=== PATIENT | female | born 1955 | race Caucasian/White ===

== ENCOUNTER 2019-07-17 22:07 | Emergency (ER) | payer OTHER ==
[2019-07-17 22:58] LABS: Absolute Lymphocytes (CBC) 3.7 K/uL (0.7-4.9); Basophils % 1.2 % (0-1.3); Hematocrit 35.8 % (36.0-45.0); Lymphocytes % 43.9 % (15.3-44.8); RBC Red Blood Cell Count 3.91 M/uL (3.86-4.86)
[2019-07-17 23:16] LABS: BUN Blood Urea Nitrogen 23 mg/dL (7-18); Bicarbonate 28 mmol/L (21-32); Glucose Level 179 mg/dL (74-106); Magnesium 1.4 mg/dL (1.8-2.4); NT PRO-BNP 419 pg/mL (<125); Potassium 3.8 mmol/L (3.5-5.1); Sodium Level 138 mmol/L (136-145); Troponin (Emerg Dept Use Only) < 0.02 ng/mL (0.0-0.045)
[2019-07-17] MEDS ORDERED: Magnesium Sulfate 2gm IVPB 2 G/50 ML BAG IV ONE (23:34)
[2019-07-17] MEDS ORDERED: NA CHLORIDE 0.9% 500 ML ONE (23:34)
--- NOTE | 2019-07-18 00:55 | ER ---
Nurse's Notes [facility] Name: Marielle Flaherty Age: 63 yrs Sex: Female : 1955 Arrival Date: 07/17/2019 Time: 22:09 Bed 18 Private MD: Diagnosis: Ventricular premature depolarization;Dehydration;Hypomagnesemia Presentation: 07/17 22:11 Presenting complaint: Patient states: "I've been having a lot of fluttering in my chest aj1 and dizziness for the past 3 days. I had testing done a few months ago, an echo and I wore a halter monitor and all they found was PVCs." Denies pain. Reports shortness of breath as well. Transition of care: patient was not received from another setting of care. Onset of symptoms was 2018. Risk Assessment: Do you want to hurt yourself or someone else? Patient reports no desire to harm self or others. Initial Sepsis Screen: Does the patient meet any 2 criteria? HR > 90 bpm. No. Patient's initial sepsis screen is negative. Does the patient have a suspected source of infection?. Care prior to arrival: None. 22:11 Method Of Arrival: Ambulatory aj1 22:11 Acuity: ZEUS 3 aj1 Triage Assessment: 22:14 General: Appears in no apparent distress. comfortable, Behavior is calm, cooperative, aj1 appropriate for age. Pain: Denies pain. Neuro: Level of Consciousness is awake, alert, obeys commands. Cardiovascular: Patient's skin is warm and dry. Respiratory: Airway is patent Respiratory effort is even, unlabored, Respiratory pattern is regular, symmetrical. Historical: - Allergies: 22:14 NKA; aj1 - Home Meds: 22:14 metformin 850 mg Oral tab 1 tab 3 times per day [Active]; glimepiride 1 mg Oral tab aj1 twice a day [Active]; Toprol XL 50 mg Oral Tb24 1 tab once daily [Active]; - PMHx: 22:14 Diabetes - NIDDM; SVT; aj1 - Immunization history:: Flu vaccine is up to date. - Social history:: Smoking status: Patient/guardian denies using tobacco. - Ebola Screening: : Patient denies travel to an Ebola-affected area in the 21 days before illness onset. - Family history:: not pertinent. - Hospitalizations: : No recent hospitalization is reported. Screenin:30 Abuse screen: Denies threats or abuse. Denies injuries from another. Nutritional wh screening: No deficits noted. Tuberculosis screening: No symptoms or risk factors identified. Fall Risk None identified. Assessment: 22:30 General: Appears in no apparent distress. Behavior is calm, cooperative, appropriate wh for age. Pain: Denies pain. Neuro: Level of Consciousness is awake, alert, obeys commands. Neuro: Level of Consciousness is Oriented to person, place, time, situation, Appropriate for age. Cardiovascular: Heart tones S1 S2 Rhythm is regular. Cardiovascular: Reports chest flutters. Respiratory: Airway is patent Respiratory effort is even, unlabored, Respiratory pattern is regular, symmetrical, Breath sounds are clear bilaterally. GI: Abdomen is flat, non-distended. : No signs and/or symptoms were reported regarding the genitourinary system. EENT: No signs and/or symptoms were reported regarding the EENT system. Derm: Skin is intact, is healthy with good turgor, Skin is pink, warm \\T\\ dry. normal. Musculoskeletal: Circulation, motion, and sensation intact. 23:16 Reassessment: Dr. Heredia notified of critical lab Mg 1.4. ss 23:30 Reassessment: Patient appears in no apparent distress at this time. No changes from previously documented assessment. Patient and/or family updated on plan of care and expected duration. Pain level reassessed. Patient is alert, oriented x 3, equal unlabored respirations, skin warm/dry/pink. Patient denies pain at this time. 07/18 00:24 Reassessment: Patient appears in no apparent distress at this time. No changes from previously documented assessment. Patient and/or family updated on plan of care and expected duration. Pain level reassessed. Patient is alert, oriented x 3, equal unlabored respirations, skin warm/dry/pink. 01:10 Reassessment: Patient appears in no apparent distress at this time. No changes from previously documented assessment. Patient and/or family updated on plan of care and expected duration. Pain level reassessed. Patient is alert, oriented x 3, equal unlabored respirations, skin warm/dry/pink. Patient denies pain at this time. Vital Signs: 07/17 22:14 BP 152 / 82; Pulse 88; Resp 16; Temp 97.9; Pulse Ox 96% on R/A; Weight 99.79 kg (R); aj1 Height 5 ft. 8 in. (172.72 cm) (R); Pain 0/10; 23:15 BP 126 / 61; Pulse 82; Resp 18; Pulse Ox 97% on R/A; 07/18 00:15 BP 128 / 60; Pulse 78; Resp 18; Pulse Ox 94% on R/A; 01:00 BP 130 / 65; Pulse 72; Resp 18; Pulse Ox 97% on R/A; 07/17 22:14 Body Mass Index 33.45 (99.79 kg, 172.72 cm) [facility] ED Course: 07/17 22:09 Patient arrived in ED. ds1 22:13 Triage completed. aj1 22:14 Arm band placed on Patient placed in an exam room. aj1 22:23 Liam Heredia MD is Attending Physician. rn 22:30 Patient has correct armband on for positive identification. Placed in gown. Bed in low wh position. Call light in reach. Side rails up X 1. teletypesetter monitor on. Pulse ox on. NIBP on. 22:44 Igor Beard is Primary Nurse. 22:45 Inserted saline lock: 22 gauge in right antecubital area, using aseptic technique. Blood collected. 22:50 XRAY Chest (1 view) In Process Unspecified. EDVA 07/18 01:11 No provider procedures requiring assistance completed. IV discontinued, intact, bleeding controlled, No redness/swelling at site. Administered Medications: 07/17 23:39 Drug: NS 0.9% 500 ml Route: IV; Rate: bolus; Site: right antecubital; 07/18 01:11 Follow up: Response: No adverse reaction; IV Status: Completed infusion 07/17 23:40 Drug: Magnesium Sulfate 2 grams Route: IVPB; Infused Over: 2 hrs; Site: right antecubital; 07/18 01:11 Follow up: Response: No adverse reaction; IV Status: Completed infusion Outcome: 00:53 Discharge ordered by . rn 01:11 Discharged to home ambulatory, with family. 01:11 Condition: stable 01:11 Discharge instructions given to patient, family, Instructed on discharge instructions, follow up and referral plans. POC Hypomagnesemia and PVC Demonstrated understanding of instructions, follow-up care, POC 01:12 Patient left the ED. Signatures: Dispatcher [employer] Ximena Callaway RN RN aj1 Sanford, Demi ds1 Liam Hreedia MD MD rn Smirch, Shelby, RN RN ss Habalo, Winsy
--- NOTE | 2019-07-18 00:55 | EDPHYS ---
Physician Documentation [facility] Name: Marielle Flaherty Age: 63 yrs Sex: Female : 1955 Arrival Date: 07/17/2019 Time: 22:09 Bed 18 Private MD: ED Physician Liam Heredia HPI: 07/17 22:46 This 63 yrs old Female presents to ER via Ambulatory with complaints of Chest rn Flutters, Dizziness. 22:46 The patient presents with a history of heart skipping beats. Context: The symptoms rn occur at rest. Onset: The symptoms/episode began/occurred 3 day(s) ago. Duration: The patient or guardian reports multiple episodes, that are intermittent. Modifying factors: The symptoms are aggravated by nothing. The symptoms are alleviated by nothing. Associated signs and symptoms: Pertinent negatives: chest pain, cough, fever, SOB, syncope, vertigo, vomiting. Severity of symptoms: At their worst the symptoms were mild in the emergency department the symptoms have improved. The patient has experienced similar episodes in the past. The patient has not recently seen a physician. Reports several months of palpitations, reports feels skips intermittently, assoc with lightheadedness when standing and changing position. No fever/cough/chest pain/abd pain/vomiting/diarrhea. No change in medication. Had complete cardiac w/u 6 months ago and told only pvcs, followed by Dr. Toribio. Has always had problems with low magnesium. . Historical: - Allergies: 22:14 NKA; aj1 - Home Meds: 22:14 metformin 850 mg Oral tab 1 tab 3 times per day [Active]; glimepiride 1 mg Oral tab aj1 twice a day [Active]; Toprol XL 50 mg Oral Tb24 1 tab once daily [Active]; - PMHx: 22:14 Diabetes - NIDDM; SVT; aj1 - Immunization history:: Flu vaccine is up to date. - Social history:: Smoking status: Patient/guardian denies using tobacco. - Ebola Screening: : Patient denies travel to an Ebola-affected area in the 21 days before illness onset. - Family history:: not pertinent. - Hospitalizations: : No recent hospitalization is reported. ROS: 22:46 Constitutional: Negative for fever, chills, and weight loss, Neck: Negative for injury, rn pain, and swelling, Cardiovascular: Negative for chest pain, and edema, Respiratory: Negative for shortness of breath, cough, wheezing, and pleuritic chest pain, Abdomen/GI: Negative for abdominal pain, nausea, vomiting, diarrhea, and constipation, MS/Extremity: Negative for injury and deformity, Skin: Negative for injury, rash, and discoloration, Neuro: Negative for headache, weakness, numbness, tingling, and seizure. Exam: 22:46 Constitutional: This is a well developed, well nourished patient who is awake, alert, rn and in no acute distress. Head/Face: Normocephalic, atraumatic. ENT: MMM Cardiovascular: Regular rhythm with occasional PVC Respiratory: Lungs have equal breath sounds bilaterally, clear to auscultation. No increased work of breathing, no retractions or nasal flaring. Abdomen/GI: soft, non-tender MS/ Extremity: Pulses equal, no cyanosis. Neurovascular intact. Full, normal range of motion. Equal circumference. Neuro: Awake and alert, GCS 15. Motor strength 5/5 in all extremities. Sensory grossly intact. Vital Signs: 22:14 BP 152 / 82; Pulse 88; Resp 16; Temp 97.9; Pulse Ox 96% on R/A; Weight 99.79 kg (R); aj1 Height 5 ft. 8 in. (172.72 cm) (R); Pain 0/10; 23:15 BP 126 / 61; Pulse 82; Resp 18; Pulse Ox 97% on R/A; wh 07/18 00:15 BP 128 / 60; Pulse 78; Resp 18; Pulse Ox 94% on R/A; wh 01:00 BP 130 / 65; Pulse 72; Resp 18; Pulse Ox 97% on R/A; wh 07/17 22:14 Body Mass Index 33.45 (99.79 kg, 172.72 cm) aj1 MDM: 07/17 22:23 Patient medically screened. rn 07/18 00:51 Differential diagnosis: arrythmia, dehydration, stress disorder, electrolyte disorder. rn Data reviewed: vital signs, nurses notes, lab test result(s), EKG, radiologic studies, plain films, and as a result, I will discharge patient. Test interpretation: by ED physician or midlevel provider: ECG, plain radiologic studies, CXR neg for acute infiltrate. Counseling: I had a detailed discussion with the patient and/or guardian regarding: the historical points, exam findings, and any diagnostic results supporting the discharge/admit diagnosis, lab results, radiology results, the need for outpatient follow up, to return to the emergency department if symptoms worsen or persist or if there are any questions or concerns that arise at home. Response to treatment: the patient's symptoms have mildly improved after treatment, and as a result, I will discharge patient. Special discussion: I discussed with the patient/guardian in detail that at this point there is no indication for admission to the hospital. It is understood, however, that if the symptoms persist or worsen the patient needs to return immediately for re-evaluation. Based on the history and exam findings, there is no indication for further emergent testing or inpatient evaluation. I discussed with the patient/guardian the need to see the angiography technologist for further evaluation of the symptoms. I discussed with the patient/guardian the need to see the primary care provider for further evaluation of the symptoms. 07/17 22:37 Order name: Basic Metabolic Panel 07/17 22:37 Order name: CBC with Diff; Complete Time: 23:18 rn 07/17 22:37 Order name: Magnesium; Complete Time: 23:18 rn 07/17 22:37 Order name: NT PRO-BNP; Complete Time: 23:18 rn 07/17 22:37 Order name: Troponin (emerg Dept Use Only); Complete Time: 23:18 rn 07/17 22:38 Order name: Basic Metabolic Panel; Complete Time: 23:18 EDMS 07/17 22:37 Order name: XRAY Chest (1 view) 07/17 22:37 Order name: Cardiac monitoring; Complete Time: 22:46 rn 07/17 22:37 Order name: EKG - Nurse/Tech; Complete Time: 22:46 rn 07/17 22:37 Order name: IV Saline Lock; Complete Time: 22:46 rn 07/17 22:37 Order name: Labs collected and sent; Complete Time: 22:46 rn 07/17 22:37 Order name: O2 Per Protocol; Complete Time: 22:46 rn 07/17 22:37 Order name: O2 Sat Monitoring; Complete Time: 22:46 rn Administered Medications: 07/17 23:39 Drug: NS 0.9% 500 ml Route: IV; Rate: bolus; Site: right antecubital; wh 07/18 01:11 Follow up: Response: No adverse reaction; IV Status: Completed infusion 07/17 23:40 Drug: Magnesium Sulfate 2 grams Route: IVPB; Infused Over: 2 hrs; Site: right antecubital; 07/18 01:11 Follow up: Response: No adverse reaction; IV Status: Completed infusion Disposition: 07/18/19 00:53 Discharged to Home. Impression: Ventricular premature depolarization, Dehydration, Hypomagnesemia. - Condition is Stable. - Discharge Instructions: Dehydration, Adult, Hypomagnesemia, Premature Ventricular Contraction. - Medication Reconciliation Form, Thank You Letter, Antibiotic Education, Prescription Opioid Use form. - Follow up: Private Physician; When: As needed; Reason: Recheck today's complaints, Re-evaluation by your physician. - Problem is an ongoing problem. - Symptoms have improved. Signatures: Dispatcher [employer] EDXimena Cardenas RN RN aj1 Liam Heredia MD MD rn Habalo, Winsy Corrections: (The following items were deleted from the chart) 01:12 00:53 07/18/2019 00:53 Discharged to Home. Impression: Ventricular premature wh depolarization; Dehydration; Hypomagnesemia. Condition is Stable. Forms are Medication Reconciliation Form, Thank You Letter, Antibiotic Education, Prescription Opioid Use. Follow up: Private Physician; When: As needed; Reason: Recheck today's complaints, Re-evaluation by your physician. Problem is an ongoing problem. Symptoms have improved. rn
[2019-07-18 02:13] VITALS: TEMP 97.9
[2019-07-18 02:16] VITALS: BP 130/65; O2SAT 97
--- NOTE | 2019-07-18 07:05 | EKG ---
Test Date: 2019-07-17 Test Time: 22:28:35 Services Mgr: JIMENEZ MEASUREMENT RESULTS: Intervals: Rate: 84 IL: 162 QRSD: 84 QT: 380 QTc: 449 [place]: P: 65 IL: 162 QRS: 63 T: 85 INTERPRETIVE STATEMENTS: Sinus rhythm with occasional premature ventricular complexes Otherwise normal ECG Compared to ECG 02/17/2017 23:42:28 Ventricular premature complex(es) now present Electronically Signed On 07-18-19 07:04:18 REMEDIAL PROJECT MANAGER by Lon Lucero
--- NOTE | 2019-07-18 09:25 | RAD REPORT ---
EXAM DESCRIPTION: RAD - Chest Single View - 07/17/2019 10:49 pm CLINICAL HISTORY: Shortness of breath COMPARISON: January 2017 TECHNIQUE: AP portable chest image was obtained 2244 hours . FINDINGS: Lungs are clear. Heart and vasculature are normal. No measurable pleural effusion and no p neumothorax. No acute bony abnormality seen. No acute aortic findings suspected. IMPRESSION: No acute cardiopulmonary process. No significant interval change.
== END 2019-07-18 01:12 | disposition home or self-care (01) ==
LOC: ER 22:07
DX: E86.0 Dehydration (principal); E83.42 Hypomagnesemia; E11.9 Type 2 diabetes mellitus without complications
CPT/HCPCS: 96365; 93005; 85025; 80048; 36415; 83735; 84484; 83880; 71045; 99284; 96366; J3475; J7040

== ENCOUNTER 2019-09-13 07:38 | Day surgery (SDC) | payer OTHER ==
[2019-09-12 10:13] LABS: Absolute Lymphocytes (CBC) 2.1 K/uL (0.7-4.9); Hematocrit 35.5 % (36.0-45.0); Lymphocytes % 37.1 % (15.3-44.8); MPV 9.8 fL (7.6-11.3); RBC Red Blood Cell Count 3.86 M/uL (3.86-4.86)
--- NOTE | 2019-09-12 10:20 | EKG ---
Test Date: 2019-09-12 Test Time: 09:42:19 Chemical Sales Representative: MIGUELITO MEASUREMENT RESULTS: Intervals: Rate: 63 GA: 166 QRSD: 88 QT: 422 QTc: 431 [place]: P: 37 GA: 166 QRS: 24 T: 86 INTERPRETIVE STATEMENTS: Normal sinus rhythm Normal ECG Compared to ECG 07/17/2019 22:28:35 Ventricular premature complex(es) no longer present Electronically Signed On 09-12-19 10:19:51 GLUE BONE DRIER by Lon Lucero
[2019-09-12 10:23] LABS: Protime INR 0.89
[2019-09-12 10:30] LABS: Potassium 4.1 mmol/L (3.5-5.1)
--- NOTE | 2019-09-12 10:57 | RAD REPORT ---
EXAM DESCRIPTION: Mikhail Salazar (2 Views)09/12/2019 10:28 am CLINICAL HISTORY: Preop for cardiac catheterization COMPARISON: July 2019 FINDINGS: The lungs appear clear of acute infiltrate. The heart is normal size IMPRESSION: No acute abnormalities displayed
[2019-09-13] MEDS ORDERED: NA CHLORIDE 0.9% 500 ML ONE (07:55)
[2019-09-13] MEDS ORDERED: NA CHLORIDE 0.9% 0 ML ONE (08:58)
[2019-09-13] MEDS ORDERED: HEPA 1000U/500MLS 1,000 UNIT/500 ML BAG IV ONE (08:58)
[2019-09-13] MEDS ORDERED: ATROPINE SULF 1 MG/10 ML SYR IV ONE (08:58)
[2019-09-13] MEDS ORDERED: FENTANYL CITR 100 MCG/2 ML ONE (08:58)
[2019-09-13] MEDS ORDERED: MIDAZOLAM HCL 2 MG/2 ML INJ ONE (08:58)
[2019-09-13 11:41] VITALS: BP 129/48; TEMP 97.2; O2SAT 96
--- NOTE | 2019-09-13 19:41 | OP ---
Date of Procedure: 09/13/2019 Surgeon: Josias Toribio MD Welding Technician: Minh Lindquist. Procedure: Heart catheterization, selective coronary arteriogram. Indication: Unstable angina. Description Of Procedure: Patient was prepped and draped in routine sterile fashion. 6-Sinhala sheat h introduced in the right common femoral artery. She was sedated with Versed and fentanyl. Angiogra phy in the right groin was normal. Angio-Seal was used to close the case. A 6-Sinhala Mino cathet er left and right were used to select the left main and the right main respectively. She had perfect ly normal coronaries. Complications: There were no complications. Blood Loss: 5 mL. Postoperative Diagnosis: Chest pain with normal coronaries. Plan: Plan is for medical therapy. Anesthesia: Total conscious sedation was 30 minutes. I would like to note that while she was on telemetry, she had multiple episodes of short runs of atri al fibrillation certainly could be that this was causing her symptoms. Nevertheless, she will go chrissie e today in 2 hours after bedrest and follow up with me in the office in 2 weeks. We will may have to do an event monitor to see if we can document atrial fibrillation better. EFREN/ALBERTO Voice ID: [id number] Report ID: [id number]
== END 2019-09-13 11:35 | disposition home health service (06) ==
LOC: CCL 07:38
PROC: B201YZZ Plain Radiography of Multiple Coronary Arteries using Other Contrast (ICD-10-PCS; principal; 2019-09-13)
DX: I20.0 Unstable angina (principal); I10 Essential (primary) hypertension; E78.5 Hyperlipidemia, unspecified; E11.9 Type 2 diabetes mellitus without complications; I48.91 Unspecified atrial fibrillation
CPT/HCPCS: 93005; 85025; 80048; 36415; 85610; 82947; 85730; 71046; 93454; C1893; C1760; J2250; J3010; J7040; J0583

== ENCOUNTER 2019-11-18 17:04 | Emergency (ER) | payer OTHER ==
[2019-11-18] MEDS ORDERED: ACETAMINOPHEN 500 MG TAB ONE (18:15)
--- NOTE | 2019-11-18 20:35 | ER ---
Nurse's Notes [facility] Name: Marielle Flaherty Age: 64 yrs Sex: Female : 1955 Arrival Date: 11/18/2019 Time: 17:07 Bed 13 Private MD: Diagnosis: Viral infection of unspecified site Presentation: 11/17 17:39 Chief complaint: Patient states: Sneezing and cough that began yesterday, sore throat ph and fever that began today, TMAX 101.5. Coronavirus screen: The patient has NOT traveled to a country currently being monitored by the [facility] within the last 14 days. The patient has NOT had contact with any known and/or suspected case of coronavirus. Ebola Screen: No symptoms or risks identified at this time. Initial Sepsis Screen: Does the patient meet any 2 criteria? No. Patient's initial sepsis screen is negative. Does the patient have a suspected source of infection? No. Patient's initial sepsis screen is negative. Risk Assessment: Do you want to hurt yourself or someone else? Patient reports no desire to harm self or others. 17:39 Method Of Arrival: Ambulatory ph 17:39 Acuity: ZEUS 4 ph Triage Assessment: 17:40 General: Appears in no apparent distress. comfortable, Behavior is calm, cooperative, bp appropriate for age. Pain: Denies pain. EENT: No deficits noted. Neuro: No deficits noted. Cardiovascular: No deficits noted. Respiratory: Reports cough that is. GI: No signs and/or symptoms were reported involving the gastrointestinal system. : No signs and/or symptoms were reported regarding the genitourinary system. Derm: No deficits noted. Musculoskeletal: No deficits noted. Historical: - Allergies: 17:41 NKA; ph - Home Meds: 17:41 glimepiride 1 mg Oral tab twice a day [Active]; metformin 850 mg Oral tab 1 tab 3 times ph per day [Active]; Toprol XL 50 mg Oral Tb24 1 tab once daily [Active]; - PMHx: 17:41 Diabetes - NIDDM; SVT; ph - Immunization history:: Adult Immunizations unknown. - Social history:: Smoking status: Patient denies any tobacco usage or history of. Screenin:40 Abuse screen: Denies threats or abuse. Denies injuries from another. Nutritional bp screening: No deficits noted. Tuberculosis screening: No symptoms or risk factors identified. Fall Risk None identified. Assessment: 17:40 General: SEE TRIAGE NOTE. PT PLACED ON DROPLET PRECAUTION. bp 18:23 Reassessment: PT ON DROPLET PRECAUTIONS. ALL CURRENT ORDERS COMPLETED, RESULTS PENDING. bp 20:13 Reassessment: No changes from previously documented assessment. Patient and/or family bb3 updated on plan of care and expected duration. Pain level reassessed. Patient is alert, oriented x 3, equal unlabored respirations, skin warm/dry/pink. Patient denies pain at this time. General: Appears in no apparent distress. comfortable. Pain: Denies pain. Neuro: No deficits noted. Respiratory: Reports cough that is non-productive, dry. Derm: No deficits noted. Musculoskeletal: No deficits noted. 21:09 Reassessment: Patient appears in no apparent distress at this time. No changes from bb3 previously documented assessment. Patient and/or family updated on plan of care and expected duration. Pain level reassessed. Patient is alert, oriented x 3, equal unlabored respirations, skin warm/dry/pink. Patient denies pain at this time. General: Appears in no apparent distress. comfortable. Pain: Denies pain. Neuro: No deficits noted. Respiratory: No deficits noted. Vital Signs: 17:39 BP 124 / 72; Pulse 89; Resp 18; Temp 101.5; Pulse Ox 98% on R/A; ph 18:23 BP 101 / 44; Pulse 81; Resp 19; Pulse Ox 96% ; bp 19:50 BP 116 / 98; Pulse 79; Resp 18; Pulse Ox 97% ; Pain 0/10; bb3 21:06 BP 125 / 79; Pulse 78; Resp 19; Pain 0/10; bb3 ED Course: 17:07 Patient arrived in ED. ag5 17:21 Hesham Dhaliwal PA is PHCP. jmm 17:21 Jose Antonio Thorne MD is Attending Physician. jm 17:21 Juan Gallego PA is PHCP. jr8 17:21 Jose Antonio Thorne MD is Attending Physician. jr8 17:22 Espinoza Mcdermott, RN is Primary Nurse. bp 17:40 Triage completed. ph 17:40 Patient has correct armband on for positive identification. Bed in low position. Call bp light in reach. Side rails up X2. 17:42 Arm band placed on Patient placed in an exam room, on a stretcher. ph 18:15 Flu and/or RSV swab sent to lab. Strep swab sent to lab. bp 18:36 XRAY Chest (1 view) In Process Unspecified. EDMS Administered Medications: 18:15 Drug: Tylenol 1000 mg Route: PO; bp Outcome: 20:35 Discharge ordered by MD. marx 21:11 Patient left the ED. bb3 Addendum: 11/20/2019 16:12 Addendum: Other Patient notified of negative COVID-19 swab results. Pt advised to d m5 continue to monitor symptoms and to return if they worsened. Signatures: Dispatcher [employer] EDMS Sheree Wall, RN RN dm5 Hesham Dhaliwal PA PA jmm Roszak, Josh, PA PA jr8 Mis Arevalo RN RN Espinoza Ruiz RN RN Gianluca Cope ag5 Nurys Lainez bb3 Corrections: (The following items were deleted from the chart) 11/17 18:24 17:40 General: SEE TRIAGE NOTE. bp bp
--- NOTE | 2019-11-18 20:35 | EDPHYS ---
Physician Documentation [facility] Name: Marielle Flaherty Age: 64 yrs Sex: Female : 1955 Arrival Date: 11/18/2019 Time: 17:07 Bed 13 Private MD: ED Physician Jose Antonio Thorne HPI: 11/17 18:28 This 64 yrs old Female presents to ER via Ambulatory with complaints of jr8 Cough, Fever. 18:28 The patient or guardian reports cough, that is intermittent, described as mild, with no jr8 sputum. Onset: The symptoms/episode began/occurred acutely, today. Severity of symptoms: At their worst the symptoms were mild, in the emergency department the symptoms are unchanged. Modifying factors: The symptoms are alleviated by nothing, the symptoms are aggravated by nothing. Associated signs and symptoms: Pertinent positives: fever, rhinorrhea, sore throat. The patient has not experienced similar symptoms in the past. The patient has not recently seen a physician. Historical: - Allergies: 17:41 NKA; ph - Home Meds: 17:41 glimepiride 1 mg Oral tab twice a day [Active]; metformin 850 mg Oral tab 1 tab 3 times ph per day [Active]; Toprol XL 50 mg Oral Tb24 1 tab once daily [Active]; - PMHx: 17:41 Diabetes - NIDDM; SVT; ph - Immunization history:: Adult Immunizations unknown. - Social history:: Smoking status: Patient denies any tobacco usage or history of. ROS: 18:28 Eyes: Negative for injury, pain, redness, and discharge, Neck: Negative for injury, jr8 pain, and swelling, Cardiovascular: Negative for chest pain, palpitations, and edema, Abdomen/GI: Negative for abdominal pain, nausea, vomiting, diarrhea, and constipation, Back: Negative for injury and pain, MS/Extremity: Negative for injury and deformity, Skin: Negative for injury, rash, and discoloration, Neuro: Negative for headache, weakness, numbness, tingling, and seizure. 18:28 Constitutional: Positive for body aches, chills, fever. 18:28 ENT: Positive for rhinorrhea, sinus congestion, sore throat. 18:28 Respiratory: Positive for cough, Negative for shortness of breath, sputum production, wheezing. Exam: 18:28 Eyes: Pupils equal round and reactive to light, extra-ocular motions intact. Lids and jr8 lashes normal. Conjunctiva and sclera are non-icteric and not injected. Cornea within normal limits. Periorbital areas with no swelling, redness, or edema. ENT: Nares patent. No nasal discharge, no septal abnormalities noted. Tympanic membranes are normal and external auditory canals are clear. Oropharynx with no redness, swelling, or masses, exudates, or evidence of obstruction, uvula midline. Mucous membranes moist. Neck: Trachea midline, no thyromegaly or masses palpated, and no cervical lymphadenopathy. Supple, full range of motion without nuchal rigidity, or vertebral point tenderness. No Meningismus. Cardiovascular: Regular rate and rhythm with a normal S1 and S2. No gallops, murmurs, or rubs. Normal PMI, no JVD. No pulse deficits. Respiratory: Lungs have equal breath sounds bilaterally, clear to auscultation and percussion. No rales, rhonchi or wheezes noted. No increased work of breathing, no retractions or nasal flaring. Abdomen/GI: Soft, non-tender, with normal bowel sounds. No distension or tympany. No guarding or rebound. No evidence of tenderness throughout. Back: No spinal tenderness. No costovertebral tenderness. Full range of motion. Skin: Warm, dry with normal turgor. Normal color with no rashes, no lesions, and no evidence of cellulitis. MS/ Extremity: Pulses equal, no cyanosis. Neurovascular intact. Full, normal range of motion. Neuro: Awake and alert, GCS 15, oriented to person, place, time, and situation. Cranial nerves II-XII grossly intact. Motor strength 5/5 in all extremities. Sensory grossly intact. Cerebellar exam normal. Normal gait. Vital Signs: 17:39 BP 124 / 72; Pulse 89; Resp 18; Temp 101.5; Pulse Ox 98% on R/A; ph 18:23 BP 101 / 44; Pulse 81; Resp 19; Pulse Ox 96% ; bp 19:50 BP 116 / 98; Pulse 79; Resp 18; Pulse Ox 97% ; Pain 0/10; bb3 21:06 BP 125 / 79; Pulse 78; Resp 19; Pain 0/10; bb3 MDM: 17:21 Patient medically screened. jr8 20:33 Data reviewed: vital signs, nurses notes, lab test result(s), radiologic studies, plain jr8 films. Data interpreted: Pulse oximetry: on room air is 97 %. Interpretation: normal. Counseling: I had a detailed discussion with the patient and/or guardian regarding: the historical points, exam findings, and any diagnostic results supporting the discharge/admit diagnosis, lab results, radiology results, the need for outpatient follow up, a family practitioner, to return to the emergency department if symptoms worsen or persist or if there are any questions or concerns that arise at home. 11/17 18:04 Order name: Strep; Complete Time: 19:04 jr8 11/17 18:04 Order name: Influenza Screen (a \T\ B); Complete Time: 19: jr8 11/17 18:04 Order name: XRAY Chest (1 view); Complete Time: 21:04 jr8 11/17 19:02 Order name: Throat Culture [facility] 11/17 19:54 Order name: Misc. Lab Test [facility] Administered Medications: 18:15 Drug: Tylenol 1000 mg Route: PO; bp Disposition: 11/18/19 20:35 Discharged to Home. Impression: Viral infection of unspecified site. - Condition is Stable. - Discharge Instructions: Viral Respiratory Infection. - Work release form, Medication Reconciliation Form, Thank You Letter, Antibiotic Education, Prescription Opioid Use form. - Follow up: Private Physician; When: 10 - 14 days; Reason: Recheck today's complaints, Continuance of care, Re-evaluation by your physician. - Problem is new. - Symptoms have improved. Addendum: 12/01/2019 21:21 Co-signature as Attending Physician, Jose Antonio Thorne MD available for consultation at p s1 all times. . Signatures: Dispatcher [employer] EDTX Juan Gallego PA PA jr8 Mis Arevalo RN RN Espinoza Ruiz RN RN Jose Antonio Gallegos MD MD [facility] Nurys Lainez3 Corrections: (The following items were deleted from the chart) 11/17 21:11 20:35 11/18/2019 20:35 Discharged to Home. Impression: Viral infection of unspecified bb3 site. Condition is Stable. Forms are Medication Reconciliation Form, Thank You Letter, Antibiotic Education, Prescription Opioid Use. Follow up: Private Physician; When: 10 - 14 days; Reason: Recheck today's complaints, Continuance of care, Re-evaluation by your physician. Problem is new. Symptoms have improved. jr8
--- NOTE | 2019-11-18 20:55 | RAD REPORT ---
EXAM DESCRIPTION: RAD - Chest Single View - 11/18/2019 6:35 pm CLINICAL HISTORY: COUGH COMPARISON: September 12 TECHNIQUE: AP portable chest image was obtained 11/18/2019 6:35 pm . FINDINGS: Lungs are clear. Heart and vasculature are normal. No measurable pleural effusion and no p neumothorax. No acute bony abnormality seen. No acute aortic findings suspected. IMPRESSION: No acute cardiopulmonary process. No significant interval change.
== END 2019-11-18 21:11 | disposition home or self-care (01) ==
LOC: ER 17:04
DX: B34.9 Viral infection, unspecified (principal); E11.9 Type 2 diabetes mellitus without complications; Z20.828 Contact with and (suspected) exposure to other viral communicable diseases
CPT/HCPCS: 87070; 87081; 87804 ×2; 71045; 99283; U0001

== ENCOUNTER 2021-05-01 16:01 | Inpatient (IN) | payer OTHER ==
--- OUTSIDE RECORDS SUMMARY | 2021-05-01 16:07 | XMS REPORT | Continuity of Care Document ---
:1955 Author Organization [facility] Address [address] [place] [address] [address] [place] [address] Care Team Providers Name Role Phone Pcp, Does Not Have A Primary Care Physician Cade RN Attending Clinician Unavailable Only, Db Test Attending Clinician Unavailable Lico RUVALCABA Attending Clinician Malu HERNANDEZ FLuis Attending Clinician Payers Payer Name Policy Type Policy Effective Date Expiration Source Number Date MEDICAREMEDICARE PART [id number] 2018 [employer] [facility] & 00:00:00 [place] [facility] FzdqkpriKY600/08/2018- [facility] [id number] [place] [id number] [facility] AND [id number] 2019 [facility] LIFECONTINENTNC 00:00:00 [place] [facility] ical [id number]/ [facility] -PresentIndemnit y Problems This patient has no known problems. Allergies, Adverse Reactions, Alerts This patient has no known allergies or adverse reactions. Social History Social Habit Start Date Stop Date Quantity Comments Source Exposure to Not sure [facility] SARS-CoV-2 (event) Medica [facility] Branch Sex Assigned At [birth year] [facility] 00:00:00 00:00:00 Smoking Status Start Date Stop Date Source Unknown if ever smoked [facility] Medications This patient has no known medications. Procedures Procedure Date / Time Performed Performing Clinician Sourc e NM BRAIN SPECT W I 123 2020-10-03 22:39:58 Oj Toribio [facility] DATSCCRESENCIO Plan of Care Planned Activity Planned Date Details Comments Source Future Scheduled Test COVID-19 VACCINE (1) [facility] [code = COVID-19 VACCINE (1)] Future Scheduled Test Hepatitis C screening [facility] (procedure) [code = 074438429] Future Scheduled Test BREAST CANCER SCREENING [facility] [code = BREAST CANCER SCREENING] Future Scheduled Test COLONOSCOPY SCREENING [facility] [code = COLONOSCOPY SCREENING] Future Scheduled Test SHINGLES VACCINES (#1) [facility] [code = SHINGLES VACCINES (#1)] Future Scheduled Test 65+ PNEUMOCOCCAL [facility] VACCINE (1 of 1 - PPSV23) [code = 65+ PNEUMOCOCCAL VACCINE (1 of 1 - PPSV23)] Future Scheduled Test INFLUENZA VACCINE [code [facility] = INFLUENZA VACCINE] Encounters Start End Encounter Admission Attending Care Care Encounter Source Date/Time Date/Time Type Type Clinicians Facility Department ID 2021-04-29 2021-04-29 Telephone JACK Mohamud [id number] [facility] 00:00:00 00:00:00 [place] [id number] ity of [facility] 4.2.7.2.686 Baron as [phone] [address] 2021-04-27 2021-04-27 Laboratory Only, Ang Db Test [facility] 1.2.8 40.114 [id number] [facility] 18:38:22 18:48:22 [facility] [id number] ity [facility] 4.2.7.2.686 Baron as Ezequiel?Blea [phone] [place] [address] [facility] 2020-10-03 2020-10-03 [facility], 1.2.840.1 [id number] Methodi 09:30:34 23:59:00 Encounter Oj Batista 48832.1.[address] 3.430.2.7 Hospit a .3.613673 l .8 2020-10-03 2020-10-03 [facility] 1.2.840.1 [id number] Methodi 09:30:00 09:30:00 Encounter Oj Batista 05019.1.[address] 3.430.2.7 Hospit a .3.842690 l .8 2020-10-03 2020-10-03 Travel 1.2.840.1 [id number] Methodi 00:00:00 00:00:[address] 3.430.2.7 0.2.7.3.698 Ho spita .3.870724 084.8 l .8 2020-10-03 2020-10-03 [facility] [id number] [place] 00:00:00 00:00:[address] O[address] 2020-10-03 2020-10-03 [facility] [id number] [place] 00:00:00 00:00:[address] O[address] 2020-09-17 2020-09-17 Travel 1.2.840.1 [id number] [id number] Methodi 00:00:00 00:00:[address] 3.430.2.7 0.2.7.3.698 Ho spita .3.893646 084.8 l .8 2020-08-21 2020-08-21 Travel 1.2.840.1 1.2.644.428 [id number] Methodi 00:00:00 00:00:[address] 3.430.2.7 0.2.7.3.698 Ho spita .3.428059 084.8 l .8 2020-08-21 2020-08-21 Transcribe [place], 1.2.840.1 [id number] Methodi 00:00:00 00:00:[address] Renae Batista [address] 3.430.2.7 Hospit a .3.385812 l .8 Results Test Description Test Time Test Comments Results Result [facility] e Comments NM Brain Spect W Procedure: MT BRAIN [employer] I 123 Datscan 4 SPECT W I 123 DATSCAN [facility] 00:35:10 Clinical History: R25.1 Tremor unspecified, R25.1 Comparison: No relevant imaging available for comparison. Technique: The patient was given 3 drops of Lugol's solution orally to protect the thyroid. The patient was then injected with 5 mCi of C-476-OeJdhqn intravenously. SPECT imaging of the brain was performed approximately 4 hours later. Findings: Normal uptake bilaterally in the caudate and putamen. Impression:Normal DaTscan. No evidence of a neurodegenerative parkinsonian syndrome. [facility]-[id number] [facility], Radiology Results - 10/03/2020 6:38 PM CST Procedure: MT BRAIN SPECT W I 123 DATSCANClinical History: R25.1 Tremor unspecified, R25.1 Comparison: No relevant imaging available for comparison.Technique: The patient was given 3 drops of Lugol's solution orally to protect the thyroid. The patient was then injected with 5 mCi of T-396-BiYmsiw intravenously. SPECT imaging of the brain was performed approximately 4 hours later.Findings:Normal uptake bilaterally in the caudate and putamen. Impression:Normal DaTscan. No evidence of a neurodegenerative parkinsonian syndrome.[facility]-[id number] Z
[2021-05-01 16:37] VITALS: BMI 30.7
[2021-05-01] MEDS ORDERED: SODIUM CHLORIDE 0.9% 10ML INJ IV PRN (17:53)
[2021-05-01] MEDS ORDERED: D50W 25 GM/50 ML SYRINGE IV PRN (17:54)
[2021-05-01] MEDS ORDERED: GLUCAGON 1 MG/VIAL IM PRN (17:54)
[2021-05-01] MEDS ORDERED: NA CHLORIDE 0.9% 1,000 ML IV SCH (18:00)
[2021-05-01] MEDS ORDERED: PANTOPRAZOLE 40 MG INJ IVP ONE (19:00)
[2021-05-01 19:28] LABS: Absolute Lymphocytes (CBC) 2.4 K/uL (0.7-4.9); Basophils % 0.4 % (0-1.3); Hematocrit 36.6 % (36.0-45.0); Lymphocytes % 36.4 % (15.3-44.8); MPV 10.3 fL (7.6-11.3); RBC Red Blood Cell Count 3.88 M/uL (3.86-4.86)
[2021-05-01 20:00] LABS: Albumin 3.7 g/dL (3.4-5.0); Bilirubin Total 0.5 mg/dL (0.2-1.0); Magnesium 2.2 mg/dL (1.8-2.4); Phosphorus 4.2 mg/dL (2.5-4.9); Potassium 4.4 mmol/L (3.5-5.1); Protein, Total 7.2 g/dL (6.4-8.2); Thyroid Stimulating Hormone 1.8 uIU/mL (0.360-3.740)
[2021-05-01] MEDS ORDERED: PANTOPRAZOLE 40 MG INJ ONE (21:02)
[2021-05-01] MEDS: ONDANSETRON 4 MG/2 ML VIAL IV PRN (22:56)
[2021-05-01] MEDS ORDERED: D5 0.9 NS 1,000 ML IV SCH (23:00)
[2021-05-02 02:18] LABS: Urine Appearance CLEAR (Clear); Urine Bilirubin NEGATIVE (Negative); Urine Blood NEGATIVE (Negative); Urine Color YELLOW (Yellow); Urine Glucose NEGATIVE (Negative); Urine Protein NEGATIVE (Negative); Urine Urobilinogen 0.2 mg/dL (0.2-1.0); Urine pH 5.5 (5.0-7.0)
[2021-05-02 03:35] LABS: Urine Bacteria <20 /HPF (<20); Urine RBC NONE SEEN /HPF (NONE SEEN)
[2021-05-02 03:36] LABS: Urine Urothelial Cells <5 /HPF (NONE SEEN)
[2021-05-02] MEDS ORDERED: NA CHLORIDE 0.9% 0 ML ONE (04:38)
--- NOTE | 2021-05-02 06:58 | HP ---
Date of Admission: 05/01/2021 Chief Complaint: Nausea and vomiting. History Of Present Illness: This is a 65-year-old very pleasant female patient who called my office today with above-mentioned problems and was asked to come in for evaluation. The patient reports sue t for last 1 week, she is having nausea and vomiting on a daily basis and her frequency of vomiting i s anywhere from 1 to 4 times a day. She denies any abdominal pain. No fever. No chills. No consti pation or diarrhea. No recent travel. She did her COVID-19 test last weekend on Thursday through [facility] system and that was negative. She feels very weak and tired and she also feels dizzy when she get s up and moves around. On a day-to-day basis with poor appetite, she is only able to have a few sips of liquids or few bites of food and sometime after an eating or drinking because of vomiting she is not able to keep anythin g down in her stomach. After she was evaluated at the office, decision was made to admit her to the hospital. Allergies: LEVAQUIN CAUSING NAUSEA AND VOMITING. Review of Systems: GI: As mentioned above. Constitutional: As mentioned above. All other systems reviewed and negative. Medications: List reviewed. Past Medical History: Significant for type 2 diabetes mellitus, hypertension, mixed hyperlipidemia, history of PVCs and supraventricular tachycardia, history of vitamin B12 deficiency, anemia, hypomagn esemia, and macular degeneration of eyes. Past Surgical History: Significant for cholecystectomy, liposuction, tonsillectomy, and breast biops y. Family History: Mother , had myocardial infarction. Mother has hypertension and hyperlipidemia problem and brother has diabetes. Social History: Negative for smoking and alcohol use. Immunization History: The patient had her COVID-19 vaccine first dose on August 27, 2020 and secon d dose October 01, 2020. Physical Examination: Vital Signs: At office today, pulse 85, temperature 97.4, respiratory rate 15, weight 202 pounds, he ight 68 inches. Her blood pressure in supine position was 130/80, in sitting position it was 126/78, and in standing position was 114/76. General: Patient appears weaker than normal, not in any distress. HEENT: Head atraumatic, normocephalic. Conjunctivae nonerythematous. Sclerae white. Mouth, no thr ush or edema noted. Ears/Nose, no mass, lesion, discharge noted. Neck: Supple. No JVD, lymph nodes, bruit, thyromegaly noted. Lungs: Bilateral good equal air entry. Clear to auscultation. No rhonchi. No rales. Heart: Normal heart sounds, no murmur or gallop. Abdomen: Patient has right lower quadrant tenderness. No rebound tenderness. No guarding. No rigi dity. Bowel sounds normoactive. No abdominal distention. Extremities: No leg edema. No calf tenderness. Skin: No rash, ulcer, cellulitis. Lymphatics: No lymph node enlargement in neck, supraclavicular, infraclavicular region. Neuro: No focal neurological deficit. Chest: Unremarkable. External Genitalia: Deferred. Rectal: Deferred. Laboratory Data: White count 6.6, hemoglobin 12, platelets 235. Sodium 138, potassium 4.4, chloride 102, bicarb 20, BUN 29, creatinine 1.16, glucose 60. Liver function test normal. TSH 1.8 and magne sium level 2.2. Impression: 1.Volume depletion. 2.Nausea with vomiting. 3.Right lower quadrant abdominal pain. 4.Type 2 diabetes mellitus. 5.Hypertension. 6.Mixed hyperlipidemia. Plan: Admit the patient to hospital for further evaluation and management of this problem. The sarah ent is appropriate for inpatient and is expected to spend two midnights in the hospital. We will go ahead and give her IV fluid, monitor her fingerstick blood sugar before meals and bedtime with mild s liding scale for diabetes management. Start the patient on some nausea and vomiting medication and a lso IV Protonix. We will get a CAT scan of abdomen done and further possibility. We need to keep in mind as we rule out acute appendicitis. Depending on the CAT scan result, we will decide about Gene ral Surgery consultation and all these details were discussed with the patient. DVT prophylaxis will be given using Lovenox. I will see her tomorrow morning for followup. RANDALL/MODL Voice ID: [id number]
[2021-05-02] MEDS: INSULIN -REGULAR HUMAN 50 UNIT/0.5 ML ML SQ SCH ×4 (08:15→22:02)
[2021-05-02] MEDS: ENOXAPARIN 40 MG/0.4 ML SQ SCH (08:47)
[2021-05-02] MEDS ORDERED: PANTOPRAZOLE 40 MG INJ IVP SCH (09:00)
--- NOTE | 2021-05-02 09:50 | RAD REPORT ---
EXAM DESCRIPTION: CTAbdomen Pelvis W Contrast - 05/02/2021 8:37 am CLINICAL HISTORY: . RLQ pain, nausea, vomiting COMPARISON: CT ABD PELVIS W CONTRAST dated 11/07/2011; CT ABD PELVIS W CONTRAST dated 02/23/2008 TECHNIQUE: Biphasic CT imaging of the abdomen and pelvis was performed with 100 ml non-ionic IV cont rast. All CT scans are performed using dose optimization technique as appropriate and may include automated exposure control or mA/KV adjustment according to patient size. FINDINGS: Lower chest: No acute abnormality. Liver: No acute abnormality or suspicious lesions. Biliary: No biliary ductal dilatation. Cholecystectomy. Stomach: No significant focal abnormality. Duodenum: No significant focal abnormality. Pancreas: No significant abnormality. Spleen: No significant abnormality. Adrenal: No suspicious lesions. Kidney/ureter: No hydronephrosis. No renal calculi. Bilateral low-density renal lesions which are sta tistically benign. Retroperitoneum: No retroperitoneal adenopathy. Vascular: No aneurysm. Bowel: No significant focal abnormality. Normal appendix. Peritoneum: No ascites or free air. Bladder: Grossly unremarkable. Reproductive: No adnexal masses. Bones: No acute fracture. Other: n/a IMPRESSION: No acute intra-abdominal or pelvic finding. Normal appendix.
[2021-05-02] MEDS: ONDANSETRON 4 MG/2 ML VIAL IV PRN (16:48)
[2021-05-02] MEDS ORDERED: LOPERAMIDE HCL 2 MG CAPSULE PO PRN (19:38)
[2021-05-02] MEDS ORDERED: NA CHLORIDE 0.9% 1,000 ML ONE (20:09)
[2021-05-02] MEDS: NA CHLORIDE 0.9% 1,000 ML IV SCH (20:21)
[2021-05-02] MEDS ORDERED: LOPERAMIDE HCL 2 MG CAPSULE ONE (20:38)
--- NOTE | 2021-05-03 06:27 | PN ---
Date of Progress Note: 05/02/2021 Subjective: The patient was seen this morning for followup. No new complaints or problems reported by her. Objective: Vital Signs: Reviewed. HEENT: Unremarkable. Lungs: Clear to auscultation. Heart: Sounds normal. Abdomen: Soft. Bowel sounds normal. No guarding, rigidity, or distention. Mild tenderness in righ t lower quadrant remains unchanged. Extremities: No leg edema. Impression: 1.Volume depletion. 2.Nausea with vomiting. 3.Right lower quadrant abdominal pain. 4.Diabetes mellitus. Plan: We will go ahead and continue IV fluid. The patient had a CAT scan done this morning after I saw her and that did not show any acute findings. We will start her on diet. Continue IV fluid. Co ntinue IV Protonix and continue current DVT prophylaxis. I will see her tomorrow for followup. RANDALL/MODL Voice ID: [id number] Report ID: [id number]
[2021-05-03] MEDS: INSULIN -REGULAR HUMAN 50 UNIT/0.5 ML ML SQ SCH (07:30)
[2021-05-03 08:39] VITALS: TEMP 97.6
[2021-05-03] MEDS: ENOXAPARIN 40 MG/0.4 ML SQ SCH (09:00)
[2021-05-03] MEDS: NA CHLORIDE 0.9% 1,000 ML IV SCH (11:20)
[2021-05-03 11:59] VITALS: BP 134/68
--- NOTE | 2021-05-04 10:58 | DS ---
Date of Discharge: 05/03/2021 Patient was seen this morning for followup. No new complaints or problems reported by her, lying in bed, not in distress. Physical Examination: Vital Signs: Reviewed. HEENT: Examination unremarkable. Lungs: Clear to auscultation. Cardiac: Heart sounds normal. Abdomen: Soft. Bowel sounds normal. No guarding, rigidity, distention. Presence of right lower ulices drant tenderness. No rebound tenderness and this tenderness remains unchanged from yesterday. Extremities: No leg edema. Laboratory Data: Reviewed. Hospital Course: A 65-year-old female patient admitted to the hospital with nausea, vomiting. Rowena douglas see dictated H and P for more information. The patient was evaluated in office. She was admitted to the hospital with nausea, vomiting, volume depletion, and right lower quadrant abdominal pain and tenderness. Initially, she was kept n.p.o. IV fluid was started and IV Protonix and nausea medicati on were started. Overall, her nausea and vomiting problem improved. She did not have any further vo miting episode in the hospital. CAT scan of the abdomen and pelvis came back negative for any acute changes. No evidence of acute appendicitis, as I was concerned about that considering her tenderness in the right lower quadrant. She had some diarrhea after the CAT scan which is to be expected becau se of the contrast dye and with use of Imodium, diarrhea problem has resolved now. General surgeon, Dr. Adorno, was consulted and he evaluated the patient and he has informed the patient that he woul d like to see her next week at the office, and depending on her condition, he will decide if diagnost ic laparoscopy should be considered or not and she will also follow up with Dr. Diaz for colonoscop y. Medically, the patient was stable and was discharged to go home with instruction to continue prio r home medications and follow up at my office next week. Final Diagnoses: 1.Volume depletion. 2.Nausea with vomiting. 3.Right lower quadrant abdominal pain. 4.Type 2 diabetes mellitus. 5.Hypertension. RANDALL/MODL Voice ID: [id number] Report ID: [id number]
== END 2021-05-03 13:30 | disposition home or self-care (01) | DRG 641 ==
LOC: 2ND-WC 16:01
PROVIDERS: ADMIT Internal Medicine; ATTEND Internal Medicine
DX: E86.9 Volume depletion, unspecified (principal); R11.2 Nausea with vomiting, unspecified; R10.31 Right lower quadrant pain; E11.9 Type 2 diabetes mellitus without complications; I10 Essential (primary) hypertension
CPT/HCPCS: 36415; 74177; 80053; 81001; 82947; 83735; 84100; 84443; 85025; 87086; 87088; C9113; J1650; J2405; J7030; J7042; Q9967

== ENCOUNTER 2022-09-19 18:12 | Emergency (ER) | payer OTHER ==
--- OUTSIDE RECORDS SUMMARY | 2022-09-19 18:15 | XMS REPORT | Continuity of Care Document ---
:1955 Author Organization [facility] t Address [address] [place] [address] Dr. Baker. [address] [place] [address] Care Team Providers Name Role Phone Dee HERNANDEZ, Denton Arrieta Primary Care Physician Rand WILKINSON, Ashley Garduno Attending Clinician Unavailable Only, Ang Db Test Attending Clinician Unavailable Jose CASINO WORKERGraciela Attending Clinician GRACIELA GARCIA Attending Clinician Unavailable Doctor Unassigned, [place] Attending Clinician Unavailable Kusum Gastelum Attending Clinician KUSUM JURADO Attending Clinician Unavailable Onofre HERNANDEZ, Nabil Attending Clinician NABIL CHENG Attending Clinician Unavailable Cade WILKINSON, Toribio Attending Clinician Unavailable Malu HERNANDEZ, Oj Batista Attending Clinician Payers Payer Name Policy Type Policy Number Effective Date Expiration Date S ource Problems This patient has no known problems. Allergies, Adverse Reactions, Alerts Allergy Allergy Status Severity Reaction(s) Onset Inactive Treating Comm ents Source Name Type Date Date Clinician NO KNOWN Drug Active Univers ALLERGIE Class it[facility] of [facility] [place] [facility] [place] Social History Social Habit Start Date Stop Date Quantity Comments Source Exposure to Yes [facility] SARS[facility]2 [facility] Assigned At [address] [facility] 00:00:00 00:00:00 Smoking Status Start Date Stop Date Source Tobacco smoking consumption unknown [facility] Medications Ordered Filled Start Stop Current Ordering Indication Dosage Frequency Signature Comments Components Source Medication Medication Date Date Medication? Clinician (SIG) Name Name No known No Univers medications 2-05 ity of 16:18: [place] [facility] No known No Univers medications 2-05 ity of 16:18: [place] [address] Medical Branch Procedures Procedure Date / Time Performed Performing Clinician [facility] e NOTICE OF BILLING 2021-06-18 16:51:35 Doctor Unassigned, No Univ [facility] PRACTICES FOR Name Medical Branch MEDICARE PATIENTS NM BRAIN SPECT W I 2020-10-03 22:39:58 Oj Toribio [facility] 123 DATSCAN Plan of Care Planned Activity Planned Date Details Comments Source Future Scheduled 2022-09-19 INFLUENZA VACCINE [facility] Test 18:14:53 [code = INFLUENZA VACCINE] Future Scheduled 2022-09-19 COVID-19 VACCINE (#1) [facility] Test 18:14:53 [code = COVID-19 VACCINE (#1)] Future Scheduled 2022-09-19 Hepatitis C screening Me [facility] Test 18:14:53 (procedure) [code = 934453056] Future Scheduled 2022-09-19 BREAST CANCER [facility] Test 18:14:53 SCREENING [code = BREAST CANCER SCREENING] Future Scheduled 2022-09-19 COLONOSCOPY SCREENING Me [facility] Test 18:14:53 [code = COLONOSCOPY SCREENING] Future Scheduled 2022-09-19 SHINGLES VACCINES (1 [facility] 18:14:53 of 2) [code = SHINGLES VACCINES (1 of 2)] Future Scheduled 2022-09-19 65+ [facility] [facility] Test 18:14:53 VACCINE (1 - PCV) [code = 65+ PNEUMOCOCCAL VACCINE (1 - PCV)] Future Scheduled COVID-19 VACCINE (1) [facility] [code = COVID-19 VACCINE (1)] Future Scheduled [facility] C [facility] (procedure) [code = 810211766] Future Scheduled BREAST CANCER [facility] Test SCREENING [code = BREAST CANCER SCREENING] Future Scheduled COLONOSCOPY SCREENING [facility] Test [code = COLONOSCOPY SCREENING] Future Scheduled SHINGLES VACCINES (#1) [facility] Test [code = SHINGLES VACCINES (#1)] Future Scheduled 65+ [facility]OCOCCAL [facility] Test VACCINE (1 of 1 - PPSV23) [code = 65+ PNEUMOCOCCAL VACCINE (1 of 1 - PPSV23)] Future Scheduled INFLUENZA VACCINE [facility] Test [code = INFLUENZA VACCINE] Encounters Start End Encounter Admission Attending Care Care Encounter Source Date/Time Date/Time Type Type Clinicians Facility Department ID 2021-10-06 2021-10-06 JACK Saucedo [id number] Univers 00:00:00 00:00:00 (Out) Ashley CHIUY 350.1.13.10 it y of HOSPITAL 4.2.7.2.686 Baron as [id number] [facility] 019 [place] 2021-10-05 2021-10-05 Laboratory Only, Ang Db Test [facility] 1.2.8 40.114 [id number] Univers 16:15:00 16:30:00 Only Graciela [employer] 350.1.13.10 ity of [place] 4.2.7.2.686 Baron as EZEQUIEL?BLEA [phone] [address] MEDICAL OFFICE BUILDING 2021-10-05 2021-10-05 Outpatient R JOSE [facility] [place] [id number] [facility] 16:15:00 16:15:00 GRACIELA thapa o f [facility] 2021-10-05 2021-10-05 Letter Doctor SANTIAGO 1.2.840.114 [id number] Univers 00:00:00 00:00:00 (Out) Unassigned, ANAID 350.1.13.10 ity of [place] [facility] 4.2.7.2.686 Abron as [id number] [address] 2021-10-05 2021-10-05 Letter Doctor SANTIAGO 1.2.840.114 [id number] Univers 00:00:00 00:00:00 (Out) Unassigned, ANAID 350.1.13.10 ity of [place] [facility] 4.2.7.2.686 Baron as [id number] [address] 2021-09-12 2021-09-12 Laboratory Only, Ang Db Test [facility] 1.2.8 40.114 [id number] Univers 14:30:00 14:45:00 Only Marija Juradoy HEALTH 350.1.13.10 ity of [place] 4.2.7.2.686 Baron as EZEQUIEL?BLEA [id number] [address] MEDICAL OFFICE [facility] 2021-09-12 2021-09-12 Outpatient R RHIANNON [facility] [id number] Univers 14:30:00 14:30:00 KUSUM ity [facility] 2021-06-18 2021-06-18 Laboratory Only, Ang Db Test [facility] 1.2.8 40.114 [id number] Univers 11:51:48 12:06:48 Only Onofre [facility] 350.1.13.10 ity of [place] 4.2.7.2.686 Baron as Ezequiel?Blea [id number] [address] Office [facility] 2021-06-18 2021-06-18 Outpatient R ONOFRE [facility] [id number] Univers 12:00:00 12:00:00 NABIL [facility] 2021-06-18 2021-06-18 Orders Doctor SANTIAGO 1.2.840.114 [id number] Univers 00:00:00 00:00:00 Only Unassigned, ANAID 350.1.13.10 ity of [place] [facility] 4.2.7.2.686 Baron as [id number] [facility] 009 [place] 2021-04-29 2021-04-29 Telephone JACK Mohamud 1.2.634.240 [id number] Univers 00:00:00 00:00:00 Aneatrice ANAID 350.1.13.10 ity of HOSPITAL 4.2.7.2.686 Baron as [id number] [facility] 019 [place] 2021-04-27 2021-04-27 Laboratory Only, Ang Db Test [facility] 1.2.8 40.114 [id number] Univers 18:38:22 18:48:22 Only Rhiannon [facility] 350.1.13.10 ity of [place] 4.2.7.2.686 Baron as Ezequiel?Blea [id number] [address] Office [facility] 2021-04-27 2021-04-27 [facility] [id number] Univers 18:45:00 18:45:00 KUSUM ity [facility] 2020-10-03 2020-10-03 [facility], 1.2.840.1 [id number] Methodi 09:30:34 23:59:00 Encounter Oj Batista 86743.1.[address] 3.430.2.7 Hospit a .3.127430 l .8 2020-10-03 2020-10-03 [facility], 1.2.840.1 [id number] Methodi 09:30:00 09:30:00 Encounter Oj Batista 66960.1.[address] 3.430.2.7 Hospit a .3.050561 l .8 2020-10-03 2020-10-03 Travel 1.2.840.1 1.2.429.867 [id number] Methodi 00:00:00 00:00:[address] 3.430.2.7 0.2.7.3.698 Ho spita .3.017515 084.8 l .8 2020-09-17 2020-09-17 Travel 1.2.840.1 1.2.346.848 [id number] Methodi 00:00:00 00:00:[address] 3.430.2.7 0.2.7.3.698 Ho spita .3.282201 084.8 l .8 2020-08-21 2020-08-21 Travel 1.2.840.1 1.2.839.182 [id number] Methodi 00:00:00 00:00:[address] 3.430.2.7 0.2.7.3.698 Ho spita .3.388396 084.8 l .8 2020-08-21 2020-08-[facility] [id number] Methodi 00:00:00 00:00:[address] Ren[address] Batista [address] 3.430.2.7 Hospit a .3.288611 l .8 Results Test Description Test Time Test Comments Results Result Sour e Comments NM Brain Spect W Procedure: HI BRAIN [facility] I 123 Datscan 4 SPECT W I 123 DATSCAN [facility] 00:35:10 Clinical History: R25.1 Tremor unspecified, R25.1 Comparison: No relevant imaging available for comparison. Technique: The patient was given 3 drops of Lugol's solution orally to protect the thyroid. The patient was then injected with 5 mCi of [id number] intravenously. SPECT imaging of the brain was performed approximately 4 hours later. Findings: Normal uptake bilaterally in the caudate and putamen. Impression:Normal DaTscan. No evidence of a neurodegenerative parkinsonian syndrome. [facility]-[id number] [facility], Radiology Results Incoming - 10/03/2020 6:38 PM CST Procedure: NM BRAIN SPECT W I 123 DATSCANClinical History: R25.1 Tremor unspecified, R25.1 Comparison: No relevant imaging available for comparison.Technique: The patient was given 3 drops of Lugol's solution orally to protect the thyroid. The patient was then injected with 5 mCi of [id number] intravenously. SPECT imaging of the brain was performed approximately 4 hours later.Findings:Normal uptake bilaterally in the caudate and putamen. Impression:Normal DaTscan. No evidence of a neurodegenerative parkinsonian syndrome.[facility]-[id number] Z
[2022-09-19 19:02] LABS: Absolute Lymphocytes (CBC) 1.2 K/uL (0.7-4.9); Hematocrit 37.3 % (36.0-45.0); Lymphocytes % 19.9 % (15.3-44.8); MCV 88.9 fL (80-100); MPV 10.1 fL (7.6-11.3)
[2022-09-19 19:05] LABS: Protime INR 1.14
[2022-09-19 19:18] LABS: Magnesium 1.6 mg/dL (1.6-2.4); Potassium 3.5 mmol/L (3.5-5.1); Troponin High Sensitivity 10.9 pg/mL (<58.9)
[2022-09-19] MEDS ORDERED: FENTANYL CITR 100 MCG/2 ML ONE (19:31)
[2022-09-19] MEDS ORDERED: NA CHLORIDE 0.9% 500 ML ONE (19:33)
[2022-09-19] MEDS ORDERED: ONDANSETRON 4 MG/2 ML VIAL ONE (19:33)
[2022-09-19] MEDS ORDERED: PANTOPRAZOLE 40 MG INJ ONE (19:33)
--- NOTE | 2022-09-19 19:38 | RAD REPORT ---
EXAM DESCRIPTION: RAD - Chest Single View - 09/19/2022 7:29 pm CLINICAL HISTORY: CHEST PAIN, dyspnea on exertion COMPARISON: Portable 11/18/2019 TECHNIQUE: AP portable chest image was obtained 09/19/2022 7:29 pm . FINDINGS: Lungs are clear. Heart and vasculature are normal. No measurable pleural effusion and no p neumothorax. No acute bony abnormality seen. No acute aortic findings suspected. IMPRESSION: No acute cardiopulmonary process. No significant change from comparison study.
--- NOTE | 2022-09-19 20:05 | RAD REPORT ---
EXAM DESCRIPTION: CT - Chest For Pe Angio - 09/19/2022 7:53 pm CLINICAL HISTORY: chest pain, shortness breath, history of DVT COMPARISON: CTANGIO CHEST FOR PE dated 04/28/2014; Chest Single View dated 09/19/2022 TECHNIQUE: Dynamically enhanced 3 mm thick images of the chest were obtained during administration o f approximately 150mL Isovue 370 IV contrast. Coronal and oblique MIP reconstruction images were gene rated and reviewed. Exam utilizes a protocol to evaluate the pulmonary arterial tree. All CT scans are performed using dose optimization technique as appropriate and may include automated exposure control or mA/KV adjustment according to patient size. FINDINGS: No pulmonary emboli are identified. The aorta as imaged shows no acute or suspicious finding. No pericardial thickening or effusion. Mild biapical scarring changes are present no acute lung parenchymal process suspected. No significan t interstitial edema identifiable. Bronchial wall calcifications are present. No bronchial wall edema or endobronchial lesion. No pleural effusion or pleural thickening. No mediastinal or hilar suspicious masses. No chest wall masses or abnormal axillary lymphadenopathy. IMPRESSION: No pulmonary emboli identified. No other significant or suspicious findings.
--- NOTE | 2022-09-19 20:54 | RAD REPORT ---
EXAM DESCRIPTION: US - Extrem Venous W Compress Vicente - 09/19/2022 8:27 pm CLINICAL HISTORY: PAIN COMPARISON: None. TECHNIQUE: Real-time sonographic evaluation of the bilateral lower extremity common femoral, superfi cial femoral, popliteal and posterior tibial veins was performed. FINDINGS: Normal compressibility, flow augmentation, phasic flow and spontaneous flow are identified in the left and right lower extremity common femoral, superficial femoral, popliteal and posterior t ibial veins. No intraluminal filling defects seen. IMPRESSION: No DVT in either lower extremity.
[2022-09-19] MEDS ORDERED: MAGNES/ALUMIN/SIMET 30ML UCUP ONE (23:16)
[2022-09-19] MEDS ORDERED: LIDOCAINE VISCOUS 2% SOLN 15 ML UDC ONE (23:17)
--- NOTE | 2022-09-20 | EDPHYS ---
Physician Documentation [facility] Name: Marielle Flaherty Age: 66 yrs Sex: Female : 1955 Arrival Date: 09/19/2022 Time: 18:13 Bed 14 Private MD: Marvin Price C; Holland Robles ED Physician Sourav Major HPI: 09/19 18:35 This 66 yrs old Female presents to ER via Ambulatory with complaints of Shortness Of cp Breath, indigestion. 18:35 The patient has shortness of breath with light activity. Onset: The symptoms/episode cp began/occurred 1 week(s) ago. 18:35 Duration: The symptoms are intermittent. Associated signs and symptoms: Pertinent cp positives: sternal burning pain described as indigestion , Pertinent negatives: non-productive cough, productive cough, fever, hemoptysis, vomiting. Severity of symptoms: in the emergency department the symptoms are unchanged despite home interventions. Patient reports taking OTC Pepcid w/o relief. Historical: - Allergies: 18:21 NKA; iw - Home Meds: 18:21 metformin 850 mg Oral tab daily [Active]; Ozempic subcutaneous once wkly [Active]; iw finasteride oral once daily [Active]; Lexapro Oral [Active]; Metoprolol Tartrate Oral [Active]; omeprazole 40 mg Oral cpDR 1 cap once daily [Active]; - PMHx: 18:21 Diabetes - NIDDM; SVT; iw - PSHx: 18:21 Cholecystectomy; liposuction; iw - Immunization history:: Flu vaccine is up to date. - Social history:: Smoking status: Patient denies any tobacco usage or history of. ROS: 18:40 Constitutional: Negative for body aches, chills, fever, poor PO intake. cp 18:40 Eyes: Negative for injury, pain, redness, and discharge. cp 18:40 ENT: Negative for drainage from ear(s), ear pain, sore throat, difficulty swallowing, difficulty handling secretions. 18:40 Cardiovascular: Positive for sternal burning pain. 18:40 Respiratory: Positive for shortness of breath, on exertion. Negative for cough, wheezing. 18:40 Abdomen/GI: Negative for abdominal pain, vomiting, diarrhea, constipation. 18:40 Neuro: Negative for altered mental status, dizziness, headache, syncope, weakness. 18:40 All other systems are negative. Exam: 18:40 ECG was reviewed by the Attending Physician. cp 18:45 Constitutional: The patient appears in no acute distress, alert, awake, cp non-diaphoretic, non-toxic, well developed, well nourished. 18:45 Head/Face: Normocephalic, atraumatic. cp 18:45 Eyes: Periorbital structures: appear normal, Conjunctiva: normal, no exudate, no injection, Sclera: no appreciated abnormality, Lids and lashes: appear normal, bilaterally. 18:45 ENT: External ear(s): are unremarkable, Nose: is normal, Mouth: Lips: moist, Oral mucosa: pink and intact, moist, Posterior pharynx: is normal, airway is patent, no erythema, no exudate. 18:45 Neck: ROM/movement: is normal, is supple, without pain, no range of motions limitations. 18:45 Chest/axilla: Inspection: normal. 18:45 Cardiovascular: Rate: tachycardic, Rhythm: regular, Edema: is not appreciated, JVD: is not appreciated. 18:45 Respiratory: the patient does not display signs of respiratory distress, Respirations: normal, no use of accessory muscles, no retractions, labored breathing, is not present, Breath sounds: are clear throughout, no decreased breath sounds, no stridor, no wheezing. 18:45 Abdomen/GI: Inspection: abdomen appears normal, Palpation: abdomen is soft and non-tender, in all quadrants. 18:45 Back: pain, is absent, ROM is normal. 18:45 Neuro: Orientation: to person, place \T\ time. Mentation: is normal, Motor: moves all fours, strength is normal, Sensation: is normal. Vital Signs: 18:20 BP 109 / 59; Pulse 100; Resp 18; Temp 98.4; Pulse Ox 100% on R/A; Weight 92.99 kg; iw Height 5 ft. 8 in. (172.72 cm); 19:25 BP 119 / 75; Pulse 101; Resp 19; Temp 98.4(O); Pulse Ox 100% on R/A; Pain 7/10; ke1 19:55 Pain 3/10; ke1 01/21 00:13 BP 119 / 75; Pulse 98; Resp 19; Temp 98.2; Pulse Ox 100% ; ke1 09/19 18:20 Body Mass Index 31.17 (92.99 kg, 172.72 cm) iw MDM: 09/19 18:25 Patient medically screened. cp 23:58 Data reviewed: vital signs, nurses notes, lab test result(s), EKG, radiologic studies, cp plain films. 23:58 Consideration of Admission/Observation Escalation of care including cp admission/observation considered. Management of patient was discussed with the following: Development Geologist: DR Robles who will see patient in clinic next week after discussing patient. I considered the following discharge prescriptions or medication management in the emergency department Medications were administered in the Emergency Department. See MAR. Independent interpretation of the following test(s) in the Emergency Department EKG: See my EKG interpretation above X-Ray: My interpretation is chest xray negative for infiltrates. Test considered but Not performed: Other Details cardiac echo. Care significantly affected by the following chronic conditions: Diabetes. Counseling: I had a detailed discussion with the patient and/or guardian regarding: the historical points, exam findings, and any diagnostic results supporting the discharge/admit diagnosis, lab results, radiology results, the need for outpatient follow up, a forming tube selector, to return to the emergency department if symptoms worsen or persist or if there are any questions or concerns that arise at home. 09/19 18:34 Order name: Basic Metabolic Panel; Complete Time: 19:18 cp 09/19 18:34 Order name: CBC with Diff; Complete Time: 19:12 cp 09/19 19:12 Interpretation: Normal except: EOSINOPHIL % 4.7. cp 09/19 18:34 Order name: D-Dimer; Complete Time: 19:18 cp 09/19 18:34 Order name: Magnesium; Complete Time: 19:18 cp 09/19 18:34 Order name: NT PRO-BNP; Complete Time: 19:18 cp 09/19 18:34 Order name: PT-INR; Complete Time: 19:18 cp 09/19 19:15 Interpretation: Reviewed. 09/19 18:34 Order name: Troponin HS; Complete Time: 19:18 cp 09/19 18:34 Order name: XRAY Chest (1 view); Complete Time: 19:56 cp 09/19 19:22 Order name: CT Chest For PE Angio; Complete Time: 20:57 cp 09/19 19:22 Order name: US Extremity Venous W Compression Vicente; Complete Time: 20:57 cp 09/19 21:32 Order name: Troponin High Sensitivity; Complete Time: 23:57 cp 09/19 18:34 Order name: EKG; Complete Time: 18:35 cp 09/19 18:34 Order name: Cardiac monitoring; Complete Time: 18:36 cp 09/19 18:34 Order name: EKG - Nurse/Tech; Complete Time: 18:36 cp 09/19 18:34 Order name: IV Saline Lock; Complete Time: 18:54 cp 09/19 18:34 Order name: Labs collected and sent; Complete Time: 18:54 cp 09/19 18:34 Order name: O2 Per Protocol; Complete Time: 18:36 cp 09/19 18:34 Order name: O2 Sat Monitoring; Complete Time: 18:36 cp 09/19 21:32 Order name: EKG - Nurse/Tech; Complete Time: 22:20 cp EC:40 Rate is 99 beats/min. Rhythm is regular. GA interval is normal. QRS interval is normal. cp QT interval is normal. T waves are Inverted in leads aVL, aVR. Interpreted by me. Reviewed by me. Administered Medications: 19:39 Drug: Zofran (Ondansetron) 4 mg Route: IVP; Site: right antecubital; ke1 19:40 Drug: ProTONIX (pantoprazole) 40 mg Route: IVP; Site: right antecubital; ke1 19:40 Drug: fentaNYL (PF) 25 mcg Route: IVP; Site: right antecubital; ke1 19:55 Follow up: Pain 3/10 Adult ke1 19:40 Drug: NS 0.9% 500 ml Route: IV; Rate: 250 ml/hr; Site: right antecubital; ke1 23:20 Drug: GI Cocktail without - (Maalox Suspension 30 ml, Lidocaine Liquid 2 % 15 ke1 ml) Route: PO; 09/20 00:14 Follow up: Response: No adverse reaction ke1 Disposition: 09/19 19:16 Co-signature as Attending Physician, Sourav GALVEZ was immediately available on-site ms3 in the Emergency Department for consultation in the care of the patient. Disposition Summary: 09/19/22 23:59 Discharge Ordered Location: Home cp Problem: new cp Symptoms: have improved cp Condition: Stable cp Diagnosis - Gastro-esophageal reflux disease without esophagitis cp Followup: cp - With: Holland Robles MD - When: 2 - 3 days - Reason: Recheck today's complaints Discharge Instructions: - Discharge Summary Sheet cp - Food Choices for Gastroesophageal Reflux Disease, Adult cp - Gastroesophageal Reflux Disease, Adult cp Forms: - Medication Reconciliation Form cp - Thank You Letter cp - Antibiotic Education cp - Prescription Opioid Use cp Prescriptions: - Protonix 40 mg Oral Tablet - take 1 tablet by ORAL route once daily; 30 tablet; Refills: 0, Product cp Selection Permitted Signatures: Dispatcher [employer] EDMerlyn Bailey RN RN iw Simone Dennison, CUSTOMER ACCOUNT MANAGER-C CUSTOMER ACCOUNT MANAGER-Cla1 David Jaeger PA PA cp Sourav Major, DO ms3 Amita Silva RN RN [id number] Sky Curry RN RN ke1
--- NOTE | 2022-09-20 | ER ---
Nurse's Notes [facility] Name: Marielle Flaherty Age: 66 yrs Sex: Female : 1955 Arrival Date: 09/19/2022 Time: 18:13 Bed 14 Private MD: Marvin Price C; Holland Robles Diagnosis: Gastro-esophageal reflux disease without esophagitis Presentation: 09/19 18:20 Chief complaint: Patient states: really weak and gets SOB on exertion , has iw indigestion, has been going off and on since the summer and got worse over past week. Coronavirus screen: Client presents with at least one sign or symptom that may indicate coronavirus-19. Ebola Screen: Patient negative for fever greater than or equal to 101.5 degrees Fahrenheit, and additional compatible Ebola Virus Disease symptoms Patient denies exposure to infectious person. Patient denies travel to an Ebola-affected area in the 21 days before illness onset. No symptoms or risks identified at this time. Initial Sepsis Screen: Does the patient meet any 2 criteria? No. Patient's initial sepsis screen is negative. Does the patient have a suspected source of infection? No. Patient's initial sepsis screen is negative. Risk Assessment: Do you want to hurt yourself or someone else? Patient reports no desire to harm self or others. Onset of symptoms was September 12, 2022. 18:20 Method Of Arrival: Ambulatory iw 18:20 Acuity: ZEUS 3 iw Triage Assessment: 18:52 General: Appears in no apparent distress. well groomed, well developed, Behavior is jh5 calm, cooperative, appropriate for age. Pain: Complains of pain in chest. Respiratory: Reports shortness of breath Onset: The symptoms/episode began/occurred yesterday, the patient has mild shortness of breath. Historical: - Allergies: 18:21 NKA; iw - Home Meds: 18:21 metformin 850 mg Oral tab daily [Active]; Ozempic subcutaneous once wkly [Active]; iw finasteride oral once daily [Active]; Lexapro Oral [Active]; Metoprolol Tartrate Oral [Active]; omeprazole 40 mg Oral cpDR 1 cap once daily [Active]; - PMHx: 18:21 Diabetes - NIDDM; SVT; iw - PSHx: 18:21 Cholecystectomy; liposuction; iw - Immunization history:: Flu vaccine is up to date. - Social history:: Smoking status: Patient denies any tobacco usage or history of. Screenin:[birth year] [facility] ED Fall Risk Assessment (Adult) History of falling in the last 3 months, 5 including since admission No falls in past 3 months (0 pts) Confusion or Disorientation No (0 pts) Intoxicated or Sedated No (0 pts) Impaired Gait No (0 pts) Mobility Assist Device Used No (0 pt) Altered Elimination No (0 pt) Score/Fall Risk Level 0 - 2 = Low Risk. Abuse screen: Denies threats or abuse. Denies injuries from another. Nutritional screening: No deficits noted. Tuberculosis screening: No symptoms or risk factors identified. Assessment: 18:54 Cardiovascular: Rhythm is irregular. Respiratory: Airway is patent Respiratory effort jh5 is even, unlabored, Breath sounds are clear. 19:22 Pain: Complains of pain in chest Pain radiates to back Pain currently is 8 out of 10 on ke1 a pain scale. Quality of pain is described as burning. Vital Signs: 18:20 BP 109 / 59; Pulse 100; Resp 18; Temp 98.4; Pulse Ox 100% on R/A; Weight 92.99 kg; iw Height 5 ft. 8 in. (172.72 cm); 19:25 BP 119 / 75; Pulse 101; Resp 19; Temp 98.4(O); Pulse Ox 100% on R/A; Pain 7/10; ke1 19:55 Pain 3/10; ke1 09/20 00:13 BP 119 / 75; Pulse 98; Resp 19; Temp 98.2; Pulse Ox 100% ; ke1 09/19 18:20 Body Mass Index 31.17 (92.99 kg, 172.72 cm) ED Course: 09/19 18:13 Patient arrived in ED. as 18:14 [facility] cp 18:14 Sourav Major DO is Attending Physician. cp 18:14 Marvin Price MD is Private Physician. as 18:14 Holland Robles MD is Private Physician. as 18:21 Triage completed. iw 18:24 Arm band placed on. iw 18:53 Patient has correct armband on for positive identification. Bed in low position. Call [facility] light in reach. Side rails up X 1. 18:53 No provider procedures requiring assistance completed. Inserted saline lock: 20 gauge jh5 in right antecubital area, using aseptic technique. 19:08 Sky Curry, MINH is Primary Nurse. ke1 19:31 XRAY Chest (1 view) In Process Unspecified. EDMS 19:55 CT Chest For PE Angio In Process Unspecified. EDMS 20:29 US Extremity Venous W Compression Vicente In Process Unspecified. EDMS 22:20 EKG done, by ED staff, reviewed by David GREWAL. zm 23:57 Holland Robles MD is Referral Physician. cp 09/20 00:14 IV discontinued. ke1 Administered Medications: 09/19 19:39 Drug: Zofran (Ondansetron) 4 mg Route: IVP; Site: right antecubital; ke1 19:40 Drug: ProTONIX (pantoprazole) 40 mg Route: IVP; Site: right antecubital; ke1 19:40 Drug: fentaNYL (PF) 25 mcg Route: IVP; Site: right antecubital; ke1 19:55 Follow up: Pain 3/10 Adult ke1 19:40 Drug: NS 0.9% 500 ml Route: IV; Rate: 250 ml/hr; Site: right antecubital; ke1 23:20 Drug: GI Cocktail without - (Maalox Suspension 30 ml, Lidocaine Liquid 2 % 15 ke1 ml) Route: PO; 09/20 00:14 Follow up: Response: No adverse reaction ke1 Medication: 09/19 18:54 VIS not applicable for this client. 5 Outcome: 23:59 Discharge ordered by . cp 09/20 00:14 Discharged to home via wheelchair. ke1 Condition: good Discharge instructions given to patient. 00:16 Patient left the ED. ke1 Signatures: Dispatcher [employer] EDMS Tiffanie Adorno Irene, RN RN iw Page, Corey, PA PA cp Rees, Jessica, RN RN Sky Mosher RN RN [facility] Dina Adorno
[2022-09-20 01:08] VITALS: O2SAT 100
[2022-09-20 01:09] VITALS: BP 119/75
[2022-09-20 01:11] VITALS: TEMP 98.2
--- NOTE | 2022-09-22 16:59 | EKG ---
Test Date: 2022-09-19 Test Time: 22:10:36 Seismograph Recorder: FORTINO MEASUREMENT RESULTS: Intervals: Rate: 92 PA: 182 QRSD: 90 QT: 378 QTc: 467 [place]: P: 62 PA: 182 QRS: 48 T: 98 INTERPRETIVE STATEMENTS: Normal sinus rhythm Normal ECG Compared to ECG 09/19/2022 18:34:51 ST (T wave) deviation no longer present Possible ischemia no longer present Electronically Signed On 09-22-22 16:55:38 SHIPPING SUPERVISOR by Holland Robles
--- NOTE | 2022-09-22 16:59 | EKG ---
Test Date: 2022-09-19 Test Time: 18:34:51 [employer] [place]: MEASUREMENT RESULTS: Intervals: Rate: 99 MT: 178 QRSD: 98 QT: 356 QTc: 456 [place]: P: 62 MT: 178 QRS: 40 T: 102 INTERPRETIVE STATEMENTS: Normal sinus rhythm ST & T wave abnormality, consider lateral ischemia Abnormal ECG Compared to ECG 09/12/2019 09:42:19 ST (T wave) deviation now present Possible ischemia now present Electronically Signed On 09-22-22 16:56:01 REMEDIAL MASSEUR by Holland Robles
== END 2022-09-20 00:16 | disposition home or self-care (01) ==
LOC: ER 18:12
DX: K21.00 Gastro-esophageal reflux disease with esophagitis, without bleeding (principal); E11.9 Type 2 diabetes mellitus without complications; I47.1 Supraventricular tachycardia
CPT/HCPCS: 93005 ×2; 85025; 80048; 36415; 83735; 85610; 85379; 84484 ×2; 83880; 71275; 71045; 93970; 96375; 96374; 99284; Q9967; C9113; J3010; J7040; J2405